=== PATIENT | male | born 1970 | race Caucasian/White ===

== ENCOUNTER 2018-10-17 13:49 | Inpatient (IN) ==
[~2018-10-17 13:49] MED LIST: LIDOCAINE W/ SODIUM BICARB 0.5 ML SYR ONE; LIDOCAINE W/ SODIUM BICARB 0.5 ML SYR SUBD ONE; Lactated Ringers 1,000 ML PRIMARY IV ONE; Nasal Sanitizer POPSWAB ampule 3 AMP (Nozin) PREOP DOSE ENOS SCH; Sodium Chloride 0.9% 0 ML ONE; Vancomycin Inj 1gm vial ONE; ceFAZolin Inj 2gm (Premix) 2 GM/50 ML BAG IV ONE
[2018-10-17 16:34] LABS: Hematocrit [HCT] 50.1 % (42.0-52.0); Hemoglobin [HGB] 17.4 g/dL (14.0-18.0); MEAN CORPUSCULAR HEMOGLOBIN 30.9 PG (27-31); MEAN CORPUSCULAR HGB CONC 34.7 g/dL (33-37); MEAN CORPUSCULAR VOLUME 88.8 FL (80-90); MEAN PLATELET VOLUME 9.3 FL (7.4-12.2); RED BLOOD COUNT 5.64 10^6/uL (4.70-6.10)
[2018-10-17 16:35] LABS: BILIRUBIN,URINE NEGATIVE (NEG); CLARITY,URINE CLEAR (CLEAR); COLOR,URINE YELLOW (Y); GLUCOSE, URINE (UA) NEGATIVE (NEG); PH,URINE 5.5 (5.0-8.5); PROTEIN,URINE NEGATIVE (NEG); UROBILINOGEN,URINE 0.2 EU/dL (0.2)
[2018-10-17 16:36] LABS: OCCULT BLOOD,URINE Trace (NEG)
[2018-10-17 17:01] LABS: BLOOD UREA NITROGEN 19 mg/dL (7-22); BUN/CREATININE RATIO 23.75 (6-20)
[2018-10-17] MEDS ORDERED: IPRATROPIUM/ALBUTEROL SULFATE 3 ML NEB NEB ONE (18:52)
[2018-10-17 19:44] LABS: URINE SAMPLE TYPE VOIDED SPECIMEN
[2018-10-17] MEDS ORDERED: Vancomycin Inj 1gm vial ONE (20:14)
[2018-10-17] MEDS ORDERED: BACITRACIN 50,000 UNIT VIAL IRRIG ONE (20:14)
[2018-10-17] MEDS ORDERED: Sodium Chloride 0.9% vial 20 ML ONE (20:14)
[2018-10-17] MEDS ORDERED: THROMBIN (BOVINE) 20,000 UNIT KIT TOPICAL ONE (20:15)
[2018-10-17] MEDS ORDERED: fentaNYL Inj 250 MCG/5 ML VIAL ONE (20:18)
[2018-10-17] MEDS ORDERED: Propofol 2,000 MG/200 ML VIAL IV ONE (20:19)
[2018-10-17] MEDS ORDERED: ONDANSETRON 4 MG/2 ML VIAL ONE (20:21)
[2018-10-17] MEDS ORDERED: KETOROLAC 30 MG/1 ML VIAL ONE (20:21)
[2018-10-17] MEDS ORDERED: ROCURONIUM 10 MG/1 ML - 5 ML VIAL IVP ONE (20:24)
[2018-10-17] MEDS ORDERED: Propofol 1,000 MG/100 ML VIAL IV ONE (22:07)
[2018-10-17] MEDS ORDERED: METOPROLOL TARTRATE 5 MG/5 ML VIAL ONE (22:14)
[2018-10-17] MEDS ORDERED: Lactated Ringers 1,000 ML PRIMARY IV ONE ×2 (22:51→23:12)
[2018-10-17] MEDS ORDERED: SUGAMMADEX SODIUM 200 MG/2 ML VIAL IV ONE (23:10)
[2018-10-17] MEDS ORDERED: fentaNYL Inj 100 MCG/2 ML VIAL ONE (23:14)
--- NOTE | 2018-10-17 23:30 | OPNOTE.NEU ---
Operative Note Operative Note: Neurosurgical Services Operative Note [facility] [id number] Tia Bar Date of Surgery: 10/17/18 Preoperative Diagnosis: L2 inferior facer fracture L2-3 herniated disc with radiculopathy Post-Op Diagnosis Codes: L2 inferior facer fracture L2-3 herniated disc with radiculopathy Procedure(s): L2-3 Posterior lumbar decompression and fusion Surgeon(s): Kyle Hartmann MD Public Service Representative(s): ANGELICA Powell Anesthesia: General Anesthesia Anesthesiologist / TRANSCRIBING OPERATOR HEAD: Francisco Javier Hernandez Brief Findings: MArked instability; recurrent herniated disc. Procedure(s): We discussed the procedure, risks, advantages and disadvantages of surgical intervention at length. To prevent further pain, disability and potential progression of neurologic deficits, the patient would like to proceed with surgery. Introduction: After obtaining informed consent, careful consideration of the pre-operative studies and evaluation, the patient asked to proceed with surgery. The patient was taken to the operating room, given an anesthetic, positioned and prepared for surgery. All pressure points were meticulously padded and great care was taken to insure the patient was appropriately positioned to avoid any abnormal strain on the extremities or any other area. The operative region was prepared with iodine solution and isolated aseptically using routine sterile draping. Position / Approach: The patient was placed in the prone position such that a posterior approach could be taken to the lumbar levels. Exposure: His previous midline incision was opened sharply so as to incorporate the abnormal level of the patient's spine using the fluoroscope for visualization and planning. Dissection was carried with electrocautery through the subcutaneous tissues then subperiosteally along the spinous processes then lamina laterally to the lateral facet joint. The transverse processes were exposed. A self retaining retractor was inserted exposing the spine. DECOMPRESSION: As the spine was exposed, it was clear that the involved joint was markedly incompetent. The joints on either side were removed medial to lateral confirming there was foraminal stenosis from herniated disk as well as calcification which extended out into the foramen bilaterally. To adequately decompress the level, both facets were completely removed. The facet on the right was fractured. The decompression was much more extensive then would be required for placement of a posterior arthrodesis alone. Both the traversing as well as the exiting nerve roots were decompressed on each side. There was herniated disk beneath the thecal sac and removal with down biting curettes with minimal manipulation of the thecal sac. Annulotomies were placed bilaterally and disk distractor's were placed in the disk space. On the right, considerable epidural fibrosis was dissected using microsurgergical technique. While distracting, a radical discectomy was performed bilaterally. The epidural space was explored extensively also to confirm no further pressure was present on any of the exiting or traversing neural elements. ARTHRODESIS: The endplates above and below the abnormal disk were scraped of cartilaginous tissue and allograft insert and rotate machined bone graft spacers were placed bilaterally. The space between the bone graft was preloaded with the bone graft mixture described below, and this mixture was also placed lateral to the bone spacers within the disk space. The bone spacers were countersunk appropriately using the fluoroscope for visualization. HARVEST / PREPARATION of BONE GRAFT: The "bone graft" was prepared from the patient's own bone derived from the left hip collected by curetting bone from the hip through a separate slab incision(37). This morselized bone was admixed with bone marrow aspirate also obtained from the hip (95349). Autologous local bone which was removed during the decompression through the same incision used for the fusion was stripped of surrounding soft tissues, morselized (88174) and mixed with osteopromotive calcium compound as well as allograft demineralized bone matrix (66332), and this was combined with the previously described hip graft and concentrated bone marrow aspirate to form the "bone graft." INSTRUMENTATION: The pedicles of above and below the abnormal disk were then identified under direct vision as well as using the fluoroscope for visualization. The pedicles were probed and tapped and pedicle screws were advanced, which were further tested using motor monitoring and were identified to have appropriate impedances and no evidence of any contact with the surrounding neural elements. Having placed pedicle screws, they were interconnected with rods, and a cross-link was placed. The screws were tested with motor monitoring and were found to have appropriate thresholds for stimulation as they were placed and after. INNER TRANSVERSE FUSION: Attention was directed to the lateral aspect of the spine. The transverse processes above and below the level were eburnated using a high speed drill equipped with a anuradha bur. Between this region of bone, the patient's own bone, described previously as "bone graft mixture", consisting of allograft, demineralized bone matrix, calcium compound, bone marrow aspirate, as well as morselized graft from the hip were placed between the transverse processes. NEED FOR OFFICE BOOKKEEPER: Ava Rivas PA-C, was instrumental throughout the operation to assist with exposure of the neural structures and protect them as the bony elements were removed. She was also instrumental during placement of the implant(s) which often takes more than two hands to perform safely and ef ficiently. OTHER TOOLS USED / UTILITY: All manipulation of the neural elements was performed using the microscope for visualization. As well, the fluoroscope was used to confirm the levels as indicated as well as to assist during implant placement and later to assess the patient's spinal alignment. There were no intra operative complications. CLOSURE: Thereafter, the wound was irrigated with copious amounts of antibiotic impregnated saline solution. Immaculate hemostasis was achieved using thrombin soaked Gelfoam, bone wax along the bony margins, as well as electrocautery. The wound was then closed in anatomical layers using Vicryl suture in the subcutaneous tissues followed by Steri-Strips on the skin. Estimated blood loss was less than 200 cc and none was replaced. Following the procedure the patient will be returned to the supine position, extubated then transferred to the recovery room, anticipating them to be in stable condition as compared to pre- surgically. Estimated Blood Loss: 200 cc Operative hemorrhage? Yes, expected amount. Drains: Hemovac Condition: Good Complications: None Authenticated by Dr. Hartmann On Production
[2018-10-17] MEDS ORDERED: Meperidine Inj 50 MG/ML CARPUJECT IVP PRN (23:32)
[2018-10-17] MEDS ORDERED: fentaNYL Inj 100 MCG/2 ML VIAL IVP PRN (23:32)
[2018-10-17] MEDS ORDERED: LIDOCAINE W/ SODIUM BICARB 0.5 ML SYR SUBD PRN (23:32)
[2018-10-17] MEDS ORDERED: MORPHINE SULFATE 2 MG/1 ML IVP PRN (23:32)
[2018-10-17] MEDS ORDERED: PROMETHAZINE 25 MG/1 ML VIAL IM PRN (23:32)
[2018-10-17] MEDS ORDERED: Metoclopramide Inj 10 MG/2 ML VIAL IVP PRN (23:32)
[2018-10-17] MEDS ORDERED: Prochlorperazine Edisylate Inj 10mg/2ml vial IVP PRN (23:32)
--- NOTE | 2018-10-17 23:35 | CRNA.PROGR ---
Anesthesia Recovery Phase I - Post Anesthesia Evaluation Patient's Condition on Arrival in Phase I: Stable (sleeping) Pain Level: 0
--- NOTE | 2018-10-17 23:35 | CRNA.PROGR ---
Anesthesia Time - Procedure/Recovery Time Start Date: 10/17/18 End Date: 10/17/18 Anesthesia : Time In: 20:32 Anesthesia : Time Out: 23:27 Anesthesia : Total Time: 175 - Total Anesthesia Time Total Anesthesia Time (minutes): 175 - Other Weight: 79.379 kg Height: 5 ft 10 in Body Mass Index (BMI): 25.1 Physical Status: P2 Anesthesia Type: General Anesthesia : ET
[2018-10-17] MEDS ORDERED: Lactated Ringers 1,000 ML PRIMARY IV SCH (23:45)
[2018-10-18] MEDS: HYDROmorphone 2 MG/1 ML IVP PRN ×3 (00:01→00:19)
[2018-10-18] MEDS ORDERED: HYDROmorphone 2 MG/1 ML ONE (00:03)
[2018-10-18] MEDS ORDERED: Ondansetron ODT Tab 4 MG TAB PO PRN (00:54)
[2018-10-18] MEDS ORDERED: MORPHINE SULFATE 2 MG/1 ML IVP PRN (00:54)
[2018-10-18] MEDS ORDERED: LABETALOL 20 MG/4 ML (5 MG/1 ML) SYRINGE IVP PRN (00:54)
[2018-10-18] MEDS ORDERED: ONDANSETRON 4 MG/2 ML VIAL IVP PRN (00:54)
[2018-10-18] MEDS ORDERED: DOCUSATE 100 MG CAPSULE PO PRN (00:54)
[2018-10-18] MEDS ORDERED: HYDRALAZINE 20 MG/1 ML IVP PRN (00:54)
[2018-10-18] MEDS ORDERED: Zolpidem Tab 5 MG TAB PO PRN (00:54)
[2018-10-18] MEDS: D5-1/2NS + 20mEq KCL 1,000 ML PRIMARY IV SCH ×2 (01:39→12:01)
[2018-10-18] MEDS: CYCLOBENZAPRINE 10 MG TABLET PO PRN ×2 (01:57→09:59)
[2018-10-18] MEDS: ceFAZolin Inj 1 GM in Sodium Chloride 0.9% 100 ML IV SCH ×2 (03:39→12:11)
[2018-10-18] MEDS: KETOROLAC 15 MG/1 ML VIAL IVP SCH ×2 (04:32→10:34)
[2018-10-18 05:19] LABS: BASOPHILS # (AUTO) 0.02 10*3/UL; BASOPHILS % (AUTO) 0.2 % (0-1); EOSINOPHILS # (AUTO) 0.01 10*3/UL; EOSINOPHILS % (AUTO) 0.1 % (0-8); Hematocrit [HCT] 46.4 % (42.0-52.0); Hemoglobin [HGB] 15.6 g/dL (14.0-18.0); LYMPHOCYTES # (AUTO) 0.87 10*3/uL; MEAN CORPUSCULAR HEMOGLOBIN 30.1 PG (27-31); MEAN CORPUSCULAR HGB CONC 33.6 g/dL (33-37); MEAN CORPUSCULAR VOLUME 89.6 FL (80-90); MEAN PLATELET VOLUME 9.7 FL (7.4-12.2); MONOCYTES # (AUTO) 0.17 10*3/UL (0.3-0.8); MONOCYTES % (AUTO) 1.3 % (5-15); NEUTROPHILS # (AUTO) 11.98 10*3/UL; NEUTROPHILS % (AUTO) 91.5 % (50-80); RED BLOOD COUNT 5.18 10^6/uL (4.70-6.10)
[2018-10-18 05:42] LABS: BLOOD UREA NITROGEN 17 mg/dL (7-22); BUN/CREATININE RATIO 21.25 (6-20)
[2018-10-18 06:29] LABS: PLATELET MORPHOLOGY COMMENT NORMAL MORPHOLOGY (NORM); RBC MORPHOLOGY COMMENT NORMAL MORPHOLOGY (NORM); WBC MORPHOLOGY COMMENT NORMAL MORPHOLOGY (NORM)
--- NOTE | 2018-10-18 07:37 | DI ---
XR L-SPINE 2-3 VW 10/17/2018 11:22 PM History: [facility] [place] ^Post op baseline Comparison: Lumbar spine CT 10/04/2018. Findings: Portable AP and lateral views of the lumbar spine are submitted. The patient is status post transpedicular L2/3 fusion with interbody spacer placement. There maybe L2 laminectomy. There is no evidence of hardware fracture or loosening. There are five non-rib bearing lumbar type vertebral bodi es. There is no evidence of acute fracture or spondylolisthesis. Vertebral body heights are preserved . Degenerative changes noted previously have not significantly progressed. Drain tubing is noted over lying the surgical bed. The visualized soft tissues are otherwise unremarkable. Impression: 1. Status post transpedicular L2/3 fusion without evidence of hardware complication or acute osseous abnormality. Correlate with desired surgical outcome.
[2018-10-18] MEDS: HYDROcodone-APAP 7.5 MG-325 MG TABLET PO PRN ×4 (08:15→15:30)
--- NOTE | 2018-10-18 11:58 | PTI REPORT ---
Thank you for the referral of Tia Bar. He was seen on 10/18/18 for an inpatient evaluation status post lumbar fusion. SUBJECTIVE: The patient is a 48-year-old male who underwent a lumbar fusion yesterday. The patient states that he is doing fairly well this morning. He does complain primarily of surgical pain right along the top of his incision site and reports his pain is a 3/10 on the verbal analog scale (0=no pain, 10=worst pain). The patient reports that he lives in a trailer home here in [place]. He states that he does have three stairs into the home and does have a railing on the left side. The patient states that prior to his surgery he was not using any assistive device for ambulation and denies any falls in the last three months. The patient does state that prior to surgery he was having issues with right lower extremity weakness, numbness, and tingling. He states that he did undergo a discectomy in February of 2018 but his symptoms were not resolved at that time. The patient is very motivated and states that he would like to try to go home today if possible, but also does not want to overdo it in regards to his new surgery. PAST MEDICAL HISTORY: Past medical history can be found in the patient's medical record. OBJECTIVE FINDINGS: General observations: The patient was alert and oriented to setting upon PT arrival. The patient was sitting up in bed. The patient does have a drain in place. The patient was first instructed on status post lumbar fusion precautions to include no bending/lifting/twisting. The patient was educated that he is to wear his back brace whenever he is up and moving. The patient was educated on how to properly perform a log roll into and out of bed and this was demonstrated with pictures. The patient was also instructed on how to perform gentle nerve glides and also to get up and walk frequently throughout the day. Bed mobility: The patient performed a log roll from a supine in bed position to a seated edge of bed position with minimal verbal cueing. Pain: The patient reported a pain level of 3/10 on the verbal analog scale (0=no pain, 10=worst pain). Transfers: The patient was able to perform a sit to stand transfer from the bed with stand by assist x1. At that time the patient was able to independently don his back brace correctly. Following ambulation the patient transferred back into bed with a log roll. Ambulation: A gait belt was placed around the patient and the patient ambulated 150 feet safely with contact guard assist x1 for safety. He did complain of some right groin pain, which is some of the pain he had before his surgery. At that time the patient stated he would like to try stairs this morning as he was feeling good. We ambulated an additional 50 feet over to the stairwell. The patient was able to safely perform 5 steps safely with contact guard assist x1 with a handrail on the left. The patient then ambulated back to his room. ASSESSMENT: The patient has good rehab potential. Problem List: Patient is status post lumbar fusion Generalized weakness, primarily in the right lower extremity Physical Therapy Goals: To be met by discharge from inpatient: Patient will be able to verbalize lumbar fusion precautions. Patient will be able to don and doff his brace correctly and independently. Patient will be able to demonstrate a correct log roll into and out of bed and will be able to transfer independently from bed to stand. Patient will be able to ambulate at least 150 feet safely and independently with back brace in place. Patient will be able to ascend and descend at least 5 stairs safely and independently with handrail on the left in order to return back home. TREATMENT PLAN: Patient will be seen B.I.D during the week and one time per day over the weekend as an inpatient to address the above goals and objectives. INITIAL TREATMENT: Treatment today consisted of the initial evaluation followed by one unit of functional activity. Following treatment the patient was left in bed with call light in place. BLANCA
[2018-10-18 13:23] VITALS: BP 149/84; RESP 16; TEMP 97.6
--- NOTE | 2018-10-18 14:57 | NEURO.PROG ---
Subjective Post Op Day: 1 Pain Management: PO Pineda Catheter: No Flatus: Yes Diet: Regular Ambulating: Yes Date of Service: 10/18/18 Time of Service: 14:52 Objective : Data - Labs CBC and BMP: 10/18/18 04:30 10/18/18 04:30 - Vital Signs Vital Signs and I&O: Vital Signs - Last Taken Temperature 97.6 F 10/18/18 13:00 Pulse Rate 75 10/18/18 13:00 Respiratory Rate 16 10/18/18 13:00 Blood Pressure 149/84 10/18/18 13:00 Pulse Ox 93 10/18/18 13:00 Intake and Output (24hr x 4 totals) 10/16/18 10/17/18 10/18/18 10/19/18 05:59 05:59 05:59 05:59 Intake Total 2760 / 2760 1345 / 1345 Output Total 605 / 605 845 / 845 Balance 2155 / 2155 500 / 500 Objective : Exam - General General Appearance: No Acute Distress Additional General Exam Details: He is ambulating with no difficulty and wearing his LSO back brace. - Head Head Exam: Normal Inspection - Eye Eye Exam: Normal Appearance - ENT ENT Exam: Normal Exam - Neck Neck Exam: Normal Inspection, Full ROM - Respiratory Respiratory Exam: Breathing Non Labored - Cardiovascular Cardiovascular Exam: RRR - GI/Abdominal GI/Abdominal Exam: Normal Bowel Sounds, Non Tender, Non Distended - Rectal Rectal Exam: Deferred - External Exam: Deferred Exam: Deferred - Extremities Extremities Exam: Normal Inspection, Full ROM - Back Back Exam: Normal Inspection - Neurological Neurological Exam: Alert, Oriented x 3 - Psychiatric Psychiatric Exam: Normal Affect - Integumentary Integumentary Exam: Warm, Dry Additional Integumentary Exam Details: Intact midline lumbar surgical wound with surgical drain. Surgical drain out satisfactory and drain removed. - Central Line Examination Central Line Present on Admission: No Assessment and Plan - Assessment / Plan Additional Assessment/Plan Details: Post op day one posterior lumbar discectomy and fusion, one level, L2-3. He is doing well, ambulating with no difficulty and wearing his LSO back brace. He is happy with his surgical results and reports drastic pre operative pain reduction Surgical drain out is satisfactory, removed. Will discharge home today.
[2018-10-18 15:13] VITALS: O2SAT 98
--- NOTE | 2018-10-19 10:35 | CONSULT ---
Consult Note - Consult Consult Date: 10/19/18 Requesting Physician: Jose Luis Duval Primary Care Provider: Harpal Marques MD - History of Present Illness History of Present Illness: Eliza returned today with increasing back pain, incisional pain. He had some twitching in his legs and scant drainage from his incision. He was seen in the ER where a CT was obtained which shows no ominous findings. I saw and examined him in the ER. Review of Systems - Review of Systems All Systems: Reviewed & No Additional Complaints Except as Stated - Constitutional Constitutional: REPORTS: Negative System Review - Integumentary Integumentary: REPORTS: Negative System Review - Ear/Nose Exam Ear/Nose Exam: REPORTS: Negative System Review - Mouth/Throat Mouth/Throat Exam: REPORTS: Negative System Review - Respiratory Respiratory: REPORTS: Negative System Review - Cardiovascular Cardiovascular: REPORTS: Negative System Review - Gastrointestinal Gastrointestinal / Abdominal: REPORTS: Negative System Review - Genitourinary Genitourinary: REPORTS: Negative System Review - Musculoskeletal Musculoskeletal: REPORTS: Back Pain - Hematlogic / Lymphatic Hematologic / Lymphatic: REPORTS: Negative System Review - Neurological Neurologic: REPORTS: Tremors Past Medical History Tobacco Use: Current Every Day Smoker In the Past 12 Months, Have Used or Abuse Any of the Following Substance: None Medication / Allergies Home Medications: Home Medications Medication Instructions Recorded Confirmed cyclobenzaprine 10 mg tablet 10 mg PO Q8H PRN #60 tab 10/17/18 10/19/18 hydrocodone 7.5 mg-acetaminophen 1 tab PO Q4H PRN #40 tab 10/17/18 10/19/18 325 mg tablet sulfamethoxazole 800 1 tab PO BID 5 Days #10 tab 10/17/18 10/19/18 mg-trimethoprim 160 mg tablet Allergies/Adverse Reactions: Allergies Allergy/AdvReac Type Severity Reaction Status Date / Time oxycodone [From Percocet] AdvReac Dysphoria Verified 10/18/18 10:02 Exam - Vitals Vital Signs: Vital Signs Temperature 97.6 F Temperature Source Temporal Artery Scan Pulse Rate [Pulse Oximeter] 75 Pulse Rate [Right Index finger 86 ] Pulse Rate 61 Respiratory Rate 16 Blood Pressure [Right Arm] 149/84 Blood Pressure 133/86 Pulse Ox [Right Index finger] 98 Pulse Ox 93 Oxygen Flow Rate [Right Index 2 finger] Oxygen Flow Rate 2 Oxygen Delivery Method [Right Room Air Index finger] Oxygen Delivery Method Room Air Height 5 ft 10 in Weight 181 lb 12.8 oz - General General Appearance: No Acute Distress - Head Head Exam: Normal Inspection, Atraumatic - Eye Eye Exam: POSITIVE: Normal Appearance - ENT ENT Exam: POSITIVE: Normal Exam - Neck Neck Exam: Normal Inspection, Full ROM - Respiratory Respiratory Exam: POSITIVE: Clear to Auscultation - Bilaterally - Cardiovascular Cardiovascular Exam: POSITIVE: RRR - GI/Abdominal GI/Abdominal Exam: POSITIVE: Non Tender, Non Distended - Rectal Rectal Exam: POSITIVE: Deferred - External Exam: POSITIVE: Deferred - Extremities Extremities Exam: POSITIVE: Full ROM, No Edema Present - Back Back Exam: POSITIVE: Normal Inspection Additional Back Exam Details: Wound clean and dry - Neurological Neurological Exam: POSITIVE: Alert, Oriented x 3, Reflexes Normal, CN II-XII Intact, Moves All Extremities Equally Additional Neurological Exam Details: Full strength and sensation Results - Labs CBC and BMP: 10/18/18 04:30 10/18/18 04:30 Assessment and Plan - Patient Problems (1) Dressing change Status: Acute Code(s): Z48.00 - Encounter for change or removal of nonsurgical wound dressing (2) Postoperative pain Status: Acute Code(s): G89.18 - Other acute postprocedural pain - Assessment / Plan Additional Assessment/Plan Details: Admit to swing bed for pain control. Suspect he was discharged pre-maturely. Recommend 24 hours of scheduled toradol, narcotics sparingly and PT/OT evalutation and treatment. Thank you.
--- NOTE | 2018-10-19 14:43 | OTI REPORT ---
Thank you for the referral of Tia Bar. He was seen on 10/18/18 for an occupational therapy inpatient evaluation status post lumbar fusion. SUBJECTIVE: The patient is a 48-year-old male who is being seen secondary to having a low back fusion. PAST MEDICAL HISTORY: Past medical history can be found in the patient's medical record. OBJECTIVE FINDINGS: General observations: The patient was instructed in his precautions of no bending/lifting/twisting. Activities of daily living: The patient was issued a tool setter and sock aide and instructed in its use. The patient practiced using the tool setter and sock aide and did well with both of these. He has a high rise toilet seat and did not feel the need for a shower chair. The patient was able to use adaptive devices independently after demonstration. ASSESSMENT: The patient did well and has good rehab potential. Short-Term Goals: To be met by discharge from inpatient: Patient will be able to use adaptive equipment independently. Patient will be able to complete all functional transfers following back precautions. Long-Term Goals: To be met following discharge from inpatient: Patient will be discharged to home, demonstrating safety and independence with all ADLs and functional activities. TREATMENT PLAN: Patient will be discharged from OT secondary to meeting all goals. INITIAL TREATMENT: Treatment today consisted of the initial evaluation only. BLANCA
== END 2018-10-18 15:33 | disposition home or self-care (01) | DRG 460 ==
LOC: OPS 13:49 → MED/SURG 23:32
PROVIDERS: ADMIT Neurological Surgery; ATTEND Neurological Surgery

== ENCOUNTER 2018-10-19 07:10 | Inpatient (IN) ==
[2018-10-19] MEDS ORDERED: Sodium Chloride 0.9% 1,000 ML PRIMARY IV ONE (07:18)
[2018-10-19] MEDS ORDERED: LORazepam 2 MG/1 ML VIAL IVP ONE (07:20)
[2018-10-19 07:24] LABS: BASOPHILS # (AUTO) 0.04 10*3/UL; BASOPHILS % (AUTO) 0.2 % (0-1); EOSINOPHILS # (AUTO) 0.16 10*3/UL; Hematocrit [HCT] 47.2 % (42.0-52.0); Hemoglobin [HGB] 16.2 g/dL (14.0-18.0); LYMPHOCYTES # (AUTO) 1.94 10*3/uL; MEAN CORPUSCULAR HGB CONC 34.3 g/dL (33-37); MEAN CORPUSCULAR VOLUME 90.4 FL (80-90); MEAN PLATELET VOLUME 9.5 FL (7.4-12.2); MONOCYTES # (AUTO) 1.59 10*3/UL (0.3-0.8); MONOCYTES % (AUTO) 9.6 % (5-15); NEUTROPHILS # (AUTO) 12.76 10*3/UL; NEUTROPHILS % (AUTO) 77.1 % (50-80); RED BLOOD COUNT 5.22 10^6/uL (4.70-6.10)
[2018-10-19 07:30] LABS: BLOOD UREA NITROGEN 18 mg/dL (7-22); PLATELET MORPHOLOGY COMMENT NORMAL MORPHOLOGY (NORM); RBC MORPHOLOGY COMMENT NORMAL MORPHOLOGY (NORM); SERUM ALBUMIN 4.8 g/dL (3.5-4.8); WBC MORPHOLOGY COMMENT NORMAL MORPHOLOGY (NORM)
--- NOTE | 2018-10-19 08:50 | DI ---
CT Lumbar Spine WO Contrast 10/19/2018 7:19 AM History: [facility] [place] ^increased low back pain, weakness/numbness in the Comparison: L-spine x-ray 10/17/2018. L-spine CT 10/04/2018. Technique: Noncontrast CT images of the lumbar spine were obtained in the axial, coronal, and sagitta l planes. Findings: The patient is status post L2/3 transpedicular fusion with interbody spacer and laminectomy at the L2 level. The right portion of the spacer is fractured, though remains within the interverteb ral disc space. The screws remain within the confines of the cortex of the pedicles and vertebral bod ies. There is no evidence of metallic hardware fracture. There is grade 1 anterolisthesis of L5 on S1 with bilateral L5 pars defects, not significantly changed compared to prior imaging. There are 5 non -rib bearing lumbar type vertebral bodies. The vertebral body heights are maintained. L1-2: Intervertebral disc height is maintained. There is no significant osseous central canal stenosi s or neuroforaminal narrowing. Posterior elements appear unremarkable. (Normal level.) L2-3: Intervertebral disc spacer restores some height loss. There is no significant osseous central c anal stenosis or neuroforaminal narrowing L3-4: Mild intervertebral disc height loss. There is no significant osseous central canal stenosis or neuroforaminal narrowing. L4-5: Mild intervertebral disc height loss. There is no significant osseous central canal stenosis or neuroforaminal narrowing. L5-S1: Mild intervertebral disc height loss. There is no significant osseous central canal stenosis or neuroforaminal narrowing. There is hypoattenuating debris with small locules of gas in the surgical bed, an expected finding in the immediate postoperative timeframe. Further evaluation is limited in the absence of intravenous c ontrast. The paravertebral soft tissues are otherwise unremarkable. The lung bases are clear. The zoey ged solid organs and hollow viscera demonstrate normal CT morphology. Scattered atheromatous calcific ations are noted in the vasculature. Impression: Status post transpedicular L2/3 fusion with interbody spacer and L2 laminectomy. The righ t portion of the spacer is fractured, though remains within the intervertebral disc space. Correlate with desired surgical outcome.
[2018-10-19 08:59] LABS: BILIRUBIN,URINE NEGATIVE (NEG); CLARITY,URINE CLEAR (CLEAR); COLOR,URINE YELLOW (Y); GLUCOSE, URINE (UA) NEGATIVE (NEG); OCCULT BLOOD,URINE NEGATIVE (NEG); PROTEIN,URINE NEGATIVE (NEG); UROBILINOGEN,URINE 0.2 EU/dL (0.2)
[2018-10-19 09:00] LABS: URINE SAMPLE TYPE CLEAN CATCH URINE
[2018-10-19] MEDS ORDERED: HYDROmorphone 2 MG/1 ML IVP ONE ×2 (09:11→09:33)
--- NOTE | 2018-10-19 09:27 | PDOC ---
Back Pain / Injury HPI - General Chief Complaint: Neck / Back Complaint Stated Complaint: low back pain into legs after back surgery this wk Date Seen by Provider: 10/19/18 Time Seen by Provider: 07:15 Source: Patient, EMS Exam Limitations: POSITIVE: No limitations Nurse's Notes Reviewed & Considered: Yes EMS Report Reviewed & Considered: Verbal - History of Present Illness Initial Comments: The patient is a 48-year-old male who is brought to the emergency department by ambulance with severe lower back pain radiating into his legs with bilateral leg numbness and shaking. The patient underwent lumbar fusion surgery per Dr. Hartmann 2 days ago. He was discharged from the hospital yesterday. He was seen here in the emergency department last night with some drainage noted in the dressing. The dressing was changed at that time and he was noted to have some serosanguineous drainage without any evidence of wound swelling or induration. The patient states that he woke up this morning at approximately 4 AM with severe lower back pain radiating down both legs, right leg worse than the left. He also states he feels like he has some weakness in his legs and numbness in both feet. He did try taking hydrocodone at 4 AM with no relief. The only medications that he is currently taking are hydrocodone and Flexeril. - Patient Home Medications Home Medications: Home Medications cyclobenzaprine 10 mg tablet 10 mg PO Q8H PRN #60 tab 10/17/18 hydrocodone 7.5 mg-acetaminophen 325 mg tablet 1 tab PO Q4H PRN #40 tab 10/17/18 sulfamethoxazole 800 mg-trimethoprim 160 mg tablet 1 tab PO BID 5 Days #10 tab 10/17/18 - Patient Allergies Allergies/Adverse Reactions: Allergies Allergy/AdvReac Type Severity Reaction Status Date / Time oxycodone [From Percocet] AdvReac Dysphoria Verified 10/19/18 08:05 Past Medical History - heen HEENT History: Denies History Cardiovascular History: Hypertension Respiratory History: Denies History Gastrointestinal History: Denies History Genitourinary History: Denies History Endocrine History: Denies History Musculoskeletal History: Back Pain, Back Injury Prosthesis or Implant: No Neurological History: Denies History Blood Disorders: Denies History Psychiatric History: Denies History History of Sexually Transmitted Diseases: No Cancer History: Denies History In Past Year Been Physically Harmed or Verbally Threatened: No History of MDRO: No History of Other Communicable Diseases: No Tobacco Use: Current Every Day Smoker Alcohol Use: None In the Past 12 Months, Have Used or Abuse Any Substance: None Previous Surgical History: Yes Type / Date of Surgery: BELÉN/APPENDECTOMY. BACK LAMINECTOMY. BACK L2-L3 FUSION Anesthesia Reactions: No Malignant Hyperthermia: No Significant Family History: Heart disease, Diabetes, Hypertension Past Medical History Reviewed: Reviewed - No Changes ROS - Limitations ROS Limitations: No Limitations Constitution: REPORTS: Chills, Weakness Neurological: REPORTS: Tingling (Both feet and left hand), Numbness (Both feet) Gastrointestinal: REPORTS: Denies GI Symptoms Musculoskeletal: REPORTS: Back Pain. DENIES: Lower Extremity Swelling Genitourinary: REPORTS: Denies Symptoms Eyes: REPORTS: Denies Symptoms ENT: REPORTS: Denies Symptoms Skin: DENIES: Rash Back Physical Assessment - General Appearance General Appearance: REPORTS: Alert, Cooperative, No Acute Distress, Anxious, Other (Patient hyperventilating on arrival) - HEENT HEENT: POSITIVE: Head Inspection Nml, Eyes Inspection Nml, Ears Inspection Nml, Nose Inspection Nml, Pharynx Inspect. Nml, PERRL, EOMI, Dry Mucous Membranes - Neck Neck: POSITIVE: Non Tender, Painless ROM, Trachea Midline - Respiratory / CVS Respiratory / CVS: POSITIVE: Chest Non Tender, Breath Sounds Normal, No Respiratory Distress, Heart Sounds Normal, Regular Rate/Rhythm - Abdomen Abdomen: Soft: (All Quadrants), Denies Tenderness: (All Quadrants), No Distention: (All Quadrants) - Skin Skin: REPORTS: Intact, No Rash - Extremities Extremity Assessment: Normal Inspection: (ALL) - Neurological / Psychological Neuro / Psych: POSITIVE: Oriented X3, window trimmer Normal As Tested, Motor Normal, Sensation Normal Back Progress - Results Reviewed by me Xrays/CTs/US Reviewed: Yes Discussed with Radiologist: Yes Radiology Findings: CT scan of the lumbar spine shows no obvious fluid collection did there is some fracturing of the disc spacer between the L2-L3 vertebrae with no other acute findings per radiologist. Lab Results Reviewed by Me: Yes CBC and BMP: 10/19/18 07:00 10/19/18 07:00 Lab Results:: Laboratory Results 10/19/18 10/19/18 10/19/18 07:00 07:00 07:00 WBC 16.56 H RBC 5.22 Hgb 16.2 Hct 47.2 MCV 90.4 H MCH 31.0 MCHC 34.3 RDW Std Deviation 46.1 RDW Coeff of Lauri 14.1 Plt Count 301 MPV 9.5 Immature Gran % (Auto) 0.4 Neut % (Auto) 77.1 Lymph % (Auto) 11.7 [place] % (Auto) 9.6 Eos % (Auto) 1.0 Baso % (Auto) 0.2 Immature Gran # (Auto) 0.07 Neut # (Auto) 12.76 Lymph # (Auto) 1.94 [place] # (Auto) 1.59 H Eos # (Auto) 0.16 Baso # (Auto) 0.04 WBC Morphology Comment Normal morphology Plt Morphology Comment Normal morphology RBC Morph Comment Normal morphology Sodium 142 Potassium 3.7 L Chloride 102 Carbon Dioxide 24 Anion Gap 16 BUN 18 Creatinine 0.9 Estimated GFR > 60 BUN/Creatinine Ratio 20.00 Glucose 95 Calculated Osmolality 295.0 H Lactic Acid Calcium 9.4 Magnesium 2.0 Total Bilirubin 0.7 AST 55 ALT 20 L Alkaline Phosphatase 77 C-Reactive Protein 4.4 H Total Protein 7.9 Albumin 4.8 Globulin 3.1 Albumin/Globulin Ratio 1.50 Ur Collection Type Urine Color Urine Clarity Urine pH Ur Specific [place] Urine Protein Urine Glucose (UA) Urine Ketones Urine Occult Blood Urine Nitrate Urine Bilirubin Urine Urobilinogen Ur Leukocyte Esterase Ur Culture Indicated? 10/19/18 10/19/18 07:00 08:54 WBC RBC Hgb Hct MCV MCH MCHC RDW Std Deviation RDW Coeff of Lauri Plt Count MPV Immature Gran % (Auto) Neut % (Auto) Lymph % (Auto) [place] % (Auto) Eos % (Auto) Baso % (Auto) Immature Gran # (Auto) Neut # (Auto) Lymph # (Auto) [place] # (Auto) Eos # (Auto) Baso # (Auto) WBC Morphology Comment Plt Morphology Comment RBC Morph Comment Sodium Potassium Chloride Carbon Dioxide Anion Gap BUN Creatinine Estimated GFR BUN/Creatinine Ratio Glucose Calculated Osmolality Lactic Acid 2.1 Calcium Magnesium Total Bilirubin AST ALT Alkaline Phosphatase C-Reactive Protein Total Protein Albumin Globulin Albumin/Globulin Ratio Ur Collection Type Clean catch urine Urine Color Yellow Urine Clarity Clear Urine pH 7.0 Ur Specific [place] 1.015 Urine Protein Negative Urine Glucose (UA) Negative Urine Ketones Negative Urine Occult Blood Negative Urine Nitrate Negative Urine Bilirubin Negative Urine Urobilinogen 0.2 Ur Leukocyte Esterase Negative Ur Culture Indicated? Culture not set - Patient's Progress MDM / ED Course: The patient arrived in the ER via EMS. He had received fentanyl and Zofran prior to arrival with minimal or no improvement. The patient was quite anxious and hyperventilating on arrival. He did receive Ativan 1 mg IV. His vital signs showed a temperature of 99.3. He was mildly tachycardic with heart rate of 106. Blood pressures in the 140s over 100s. Blood work reveals a white cou nt of 16,000 with a CRP of 4.4. Urinalysis is unremarkable. CT scan of the lumbar spine reveals postoperative changes with no obvious fluid accumulation visible on CT. He does however have a fracture of the spacer between the L2 and L3 vertebrae. Dr. Hartmann was consulted and he did evaluate the patient and review the patient's CAT scan findings. He stated that the hardware and spacers appeared to be in adequate position and there was no obvious evidence of fluid accumulation. The patient was still having significant pain after CT and received 2 doses of Dilaudid 1 mg IM. He was still having continued pain and Dr. Hartmann recommended administration of Toradol 30 mg IV. He also recommended that the patient be admitted for further pain management for the next several days. Dr. Duval was subsequently contacted and has agreed to admit the patient for further treatment. - Consult Counseled: POSITIVE: Patient, RE: Lab Results, RE: Radiology Results, RE: DX, RE: Need for F/U Patient Care Time - Estimated PCT Patient Care Time (In Minutes): 35 Vital Signs - Recent Vital Signs Vital Signs: Vital Signs (Last 8 hours) Temp Pulse Resp BP Pulse Ox 10/19/18 08:08 99.3 F 106 H 18 145/106 96 - VS Reviewed Vital Signs Reviewed: Yes Discharge Clinical Impression: Status post lumbar surgery, Postoperative pain Discharge Disposition: Admit to Observation Condition: Stable Patient Instructions Given at Discharge: Back Pain (ED)
[2018-10-19] MEDS ORDERED: KETOROLAC 30 MG/1 ML VIAL IVP ONE (09:45)
--- NOTE | 2018-10-19 12:07 | PDOC ---
HPI - History of Present Illness History of Present Illness: This very nice 48-year-old gentleman who is status post surgery was discharged home yesterday for lumbar fusion by Dr. Hartmann he was seen in the emergency room w ith some drainage noted on the dressing and had some serosanguineous drainage was no evidence of swelling or redness this morning he was having some back pain that radiated both to his legs was called by Dr. Hartmann and Dr. Mason to admit the patient for pain control I asked Dr. Hartmann to consult and make some recommendations Past Medical History Medical History: Back surgery, tobacco use Surgical History: Back surgery Tobacco Use: Current Every Day Smoker In the Past 12 Months, Have Used or Abuse Any of the Following Substance: None Medication / Allergies Home Medications: Home Medications Medication Instructions Recorded Confirmed cyclobenzaprine 10 mg tablet 10 mg PO Q8H PRN #60 tab 10/17/18 10/19/18 hydrocodone 7.5 mg-acetaminophen 1 tab PO Q4H PRN #40 tab 10/17/18 10/19/18 325 mg tablet sulfamethoxazole 800 1 tab PO BID 5 Days #10 tab 10/17/18 10/19/18 mg-trimethoprim 160 mg tablet Allergies/Adverse Reactions: Allergies Allergy/AdvReac Type Severity Reaction Status Date / Time oxycodone [From Percocet] AdvReac Dysphoria Verified 10/19/18 08:05 Review of Systems - Respiratory Respiratory: DENIES: Negative System Review, Cough, Sputum, Dyspnea At Rest, Dyspnea with Exertion, Pleuritic Pain, Hemoptysis, Wheezing, Other, See HPI - Cardiovascular Cardiovascular: DENIES: Negative System Review, Chest Pain, Edema, Syncope, Palpitations, Orthopnea, Paroxysmal Nocturnal Dyspnea, Other, See HPI - Gastrointestinal Gastrointestinal / Abdominal: DENIES: Negative System Review, Nausea, Vomiting, Diarrhea, Constipation, Abdominal Pain, Bloody Stool, Poor Appetite, Heartburn, Regurgitation, Bloating, Lactose Intolerance, Melena, Bright Red Blood per Rectum, Other, See HPI - Musculoskeletal Musculoskeletal: REPORTS: Back Pain Exam - Vitals Vital Signs: Vital Signs Temperature 99.3 F Temperature Source Temporal Artery Scan Pulse Rate [Pulse Oximeter] 106 Respiratory Rate 18 Blood Pressure [Right Arm] 145/106 Pulse Ox 96 Oxygen Delivery Method Room Air Height 5 ft 10 in Weight 180 lb - General General Appearance: No Acute Distress, Cooperative - ENT ENT Exam: POSITIVE: Normal Exam, Normal External Ear Exam, Normal Oropharynx, TM's Normal Bilaterally, Mucous Membranes Moist - Neck Neck Exam: Normal Inspection, Full ROM, No Tenderness, No Lymphadenopathy, No Thyromegaly, JVP is not Raised - Respiratory Respiratory Exam: POSITIVE: Clear to Auscultation - Bilaterally, Breathing Non Labored, Normal To Percussion, Normal to Percussion and Palpation - Cardiovascular Cardiovascular Exam: POSITIVE: RRR, No Murmur, No Clicks, No Gallops, No Rubs, PMI Non-Displaced - GI/Abdominal GI/Abdominal Exam: POSITIVE: Normal Bowel Sounds, Non Tender, Non Distended, Soft, No Masses, No Hepatomegaly, No Splenomegaly, No Organomegaly - Extremities Extremities Exam: POSITIVE: No Clubbing Present, No Edema Present, No Cyanosis Present Results - Labs CBC and BMP: 10/19/18 07:00 10/19/18 07:00 Assessment and Plan - Patient Problems (1) Postoperative pain Current Visit: Yes Status: Acute Comment: Admit for pain control with IV Toradol and IV Tylenol if necessary he will have his usual oxycodone that was prescribed by Dr. Hartmann Code(s): G89.18 - Other acute postprocedural pain (2) Status post discectomy for herniated nucleus pulposus Current Visit: No Status: Chronic Comment: For Dr. Hartmann for wound care he is on consult then she has seen the patient today Code(s): Z98.890 - Other specified postprocedural states; Z87.39 - Personal history of other diseases of the musculoskeletal system and connective tissue (3) Tobacco abuse Current Visit: No Status: Chronic Comment: .Nicotine patch Code(s): Z72.0 - Tobacco use
[2018-10-19] MEDS ORDERED: CYCLOBENZAPRINE 10 MG TABLET PO PRN (12:29)
[2018-10-19] MEDS ORDERED: HYDROcodone-APAP 7.5 MG-325 MG TABLET PO PRN (12:29)
[2018-10-19] MEDS ORDERED: ONDANSETRON 4 MG/2 ML VIAL IVP PRN (12:29)
[2018-10-19] MEDS ORDERED: CALCIUM CARBONATE 500 MG (TUMS) CHEWABLE TABLET PO PRN (12:29)
[2018-10-19] MEDS ORDERED: LIDOCAINE W/ SODIUM BICARB 0.5 ML SYR SUBD PRN (12:29)
[2018-10-19] MEDS ORDERED: DOCUSATE 100 MG CAPSULE PO PRN (12:29)
[2018-10-19] MEDS ORDERED: ACETAMINOPHEN 325 MG TABLET PO PRN (12:29)
[2018-10-19] MEDS: SULFAMETHOXAZOLE/TRIMETHOPRIM 800/160 MG TABLET PO SCH ×2 (12:57→21:10)
[2018-10-19] MEDS: HYDROcodone-APAP 7.5 MG-325 MG TABLET PO PRN ×3 (12:57→21:11)
[2018-10-19] MEDS: CYCLOBENZAPRINE 10 MG TABLET PO PRN ×2 (12:58→18:56)
[2018-10-19] MEDS: NICOTINE 21 MG /DAY PATCH TRANSDERM SCH (12:58)
--- NOTE | 2018-10-19 15:40 | CONSULT ---
Consult Note - Consult Consult Date: 10/19/18 Requesting Physician: Jose Luis Duval Primary Care Provider: Harpal Marques MD - History of Present Illness History of Present Illness: Eliza returned today with increasing back pain, incisional pain. He had some twitching in his legs and scant drainage from his incision. He was seen in the ER where a CT was obtained which shows no ominous findings. I saw and examined him in the ER. Review of Systems - Review of Systems All Systems: Reviewed & No Additional Complaints Except as Stated - Constitutional Constitutional: REPORTS: Negative System Review - Integumentary Integumentary: REPORTS: Negative System Review - Ear/Nose Exam Ear/Nose Exam: REPORTS: Negative System Review - Mouth/Throat Mouth/Throat Exam: REPORTS: Negative System Review - Respiratory Respiratory: REPORTS: Negative System Review - Cardiovascular Cardiovascular: REPORTS: Negative System Review - Gastrointestinal Gastrointestinal / Abdominal: REPORTS: Negative System Review - Genitourinary Genitourinary: REPORTS: Negative System Review - Musculoskeletal Musculoskeletal: REPORTS: Back Pain - Hematlogic / Lymphatic Hematologic / Lymphatic: REPORTS: Negative System Review - Neurological Neurologic: REPORTS: Tremors Past Medical History Tobacco Use: Current Every Day Smoker In the Past 12 Months, Have Used or Abuse Any of the Following Substance: None Medication / Allergies Home Medications: Home Medications Medication Instructions Recorded Confirmed cyclobenzaprine 10 mg tablet 10 mg PO Q8H PRN #60 tab 10/17/18 10/19/18 hydrocodone 7.5 mg-acetaminophen 1 tab PO Q4H PRN #40 tab 10/17/18 10/19/18 325 mg tablet sulfamethoxazole 800 1 tab PO BID 5 Days #10 tab 10/17/18 10/19/18 mg-trimethoprim 160 mg tablet Allergies/Adverse Reactions: Allergies Allergy/AdvReac Type Severity Reaction Status Date / Time oxycodone [From Percocet] AdvReac Dysphoria Verified 10/19/18 08:05 Exam - Vitals Vital Signs: Vital Signs Temperature 97.6 F Temperature Source Temporal Artery Scan Pulse Rate [Pulse Oximeter] 75 Pulse Rate [Right Index finger 86 ] Pulse Rate 61 Respiratory Rate 16 Blood Pressure [Right Arm] 149/84 Blood Pressure 133/86 Pulse Ox [Right Index finger] 98 Pulse Ox 93 Oxygen Flow Rate [Right Index 2 finger] Oxygen Flow Rate 2 Oxygen Delivery Method [Right Room Air Index finger] Oxygen Delivery Method Room Air Height 5 ft 10 in Weight 181 lb 12.8 oz - General General Appearance: No Acute Distress - Head Head Exam: Normal Inspection, Atraumatic - Eye Eye Exam: POSITIVE: Normal Appearance - ENT ENT Exam: POSITIVE: Normal Exam - Neck Neck Exam: Normal Inspection, Full ROM - Respiratory Respiratory Exam: POSITIVE: Clear to Auscultation - Bilaterally - Cardiovascular Cardiovascular Exam: POSITIVE: RRR - GI/Abdominal GI/Abdominal Exam: POSITIVE: Non Tender, Non Distended - Rectal Rectal Exam: POSITIVE: Deferred - External Exam: POSITIVE: Deferred - Extremities Extremities Exam: POSITIVE: Full ROM, No Edema Present - Back Back Exam: POSITIVE: Normal Inspection Additional Back Exam Details: Wound clean and dry - Neurological Neurological Exam: POSITIVE: Alert, Oriented x 3, Reflexes Normal, CN II-XII Intact, Moves All Extremities Equally Additional Neurological Exam Details: Full strength and sensation Results - Labs CBC and BMP: 10/19/18 07:00 10/19/18 07:00 Assessment and Plan - Patient Problems (1) Dressing change Current Visit: No Status: Acute Code(s): Z48.00 - Encounter for change or removal of nonsurgical wound dressing (2) Postoperative pain Current Visit: Yes Status: Acute Code(s): G89.18 - Other acute postprocedural pain - Assessment / Plan Additional Assessment/Plan Details: Admit to swing bed for pain control. Suspect he was discharged pre-maturely. Recommend 24 hours of scheduled toradol, narcotics sparingly and PT/OT evalutation and treatment. Thank you.
[2018-10-19] MEDS: KETOROLAC 15 MG/1 ML VIAL IVP PRN ×2 (16:53→23:18)
[2018-10-19] MEDS: DOCUSATE 100 MG CAPSULE PO SCH (21:10)
[2018-10-20] MEDS: CYCLOBENZAPRINE 10 MG TABLET PO PRN ×4 (00:59→20:52)
[2018-10-20] MEDS: HYDROcodone-APAP 7.5 MG-325 MG TABLET PO PRN ×5 (02:17→20:06)
[2018-10-20 04:49] LABS: BASOPHILS # (AUTO) 0.04 10*3/UL; BASOPHILS % (AUTO) 0.2 % (0-1); EOSINOPHILS # (AUTO) 0.22 10*3/UL; EOSINOPHILS % (AUTO) 1.4 % (0-8); Hematocrit [HCT] 40.6 % (42.0-52.0); Hemoglobin [HGB] 13.5 g/dL (14.0-18.0); LYMPHOCYTES # (AUTO) 1.49 10*3/uL; MEAN CORPUSCULAR HEMOGLOBIN 30.4 PG (27-31); MEAN CORPUSCULAR HGB CONC 33.3 g/dL (33-37); MEAN CORPUSCULAR VOLUME 91.4 FL (80-90); MEAN PLATELET VOLUME 9.6 FL (7.4-12.2); MONOCYTES # (AUTO) 2.02 10*3/UL (0.3-0.8); MONOCYTES % (AUTO) 12.5 % (5-15); NEUTROPHILS # (AUTO) 12.29 10*3/UL; NEUTROPHILS % (AUTO) 76.3 % (50-80); RED BLOOD COUNT 4.44 10^6/uL (4.70-6.10)
[2018-10-20 05:00] LABS: BLOOD UREA NITROGEN 15 mg/dL (7-22); BUN/CREATININE RATIO 16.66 (6-20); SERUM ALBUMIN 3.5 g/dL (3.5-4.8)
[2018-10-20 05:05] LABS: PLATELET MORPHOLOGY COMMENT NORMAL MORPHOLOGY (NORM); RBC MORPHOLOGY COMMENT NORMAL MORPHOLOGY (NORM); WBC MORPHOLOGY COMMENT NORMAL MORPHOLOGY (NORM)
[2018-10-20] MEDS: KETOROLAC 15 MG/1 ML VIAL IVP PRN ×3 (07:51→22:09)
[2018-10-20] MEDS: SULFAMETHOXAZOLE/TRIMETHOPRIM 800/160 MG TABLET PO SCH ×2 (08:11→20:05)
[2018-10-20] MEDS: DOCUSATE 100 MG CAPSULE PO SCH ×2 (08:12→20:05)
[2018-10-20] MEDS: MAGNESIUM 400 MG/5 ML - 30 ML (MILK OF MAGNESIA) PO PRN ×2 (10:25→14:51)
--- NOTE | 2018-10-20 11:12 | PDOC(PROG) ---
Interval History: Doing well pain is a little improved but not totally still like to stay Objective : Data - Labs CBC and BMP: 10/20/18 03:50 10/20/18 03:50 Objective : Exam - General General Appearance: Cooperative - Respiratory Respiratory Exam: Clear to Auscultation - Bilaterally, Breathing Non Labored, Normal To Percussion, Normal to Percussion and Palpation - Cardiovascular Cardiovascular Exam: RRR, No Murmur, No Clicks, No Gallops, No Rubs, PMI Non- Displaced - GI/Abdominal GI/Abdominal Exam: Normal Bowel Sounds, Non Tender, Non Distended, Soft, No Masses, No Hepatomegaly, No Splenomegaly, No Organomegaly - Extremities Extremities Exam: No Clubbing Present, No Edema Present, No Cyanosis Present Assessment and Plan - Patient Problems (1) Postoperative pain Current Visit: Yes Status: Acute Comment: Continue current meds Code(s): G89.18 - Other acute postprocedural pain (2) Status post discectomy for herniated nucleus pulposus Current Visit: No Status: Chronic Comment: Continue current meds also has milk of mag for BMs Code(s): Z98.890 - Other specified postprocedural states; Z87.39 - Personal history of other diseases of the musculoskeletal system and connective tissue (3) Tobacco abuse Current Visit: No Status: Chronic Code(s): Z72.0 - Tobacco use
[2018-10-20] MEDS: NICOTINE 21 MG /DAY PATCH TRANSDERM SCH (13:29)
--- NOTE | 2018-10-20 14:14 | NEURO.PROG ---
Subjective Post Op Day: 3 Pain Management: PO Pineda Catheter: No Flatus: Yes Diet: Regular Ambulating: Yes Additional Details: POD #3, S/p L2-3 PLIF, Dr. Hartmann. Readmitted to hospitalist for pain control Doing well, pain well controlled. States he had to take 2 hydrocodone 7.5 mg every 4-6 hours to get relief so wants to do that upon discharge. Wearing brace. Numbness in the legs is getting better, pain improving in the legs. Denies weakness. Bladder working well, has not had a BM in 3 days but on Colace and just took Milk of Mag. Denies chest pain, shortness of breath, calf pain, fevers, chills. Objective : Data - Labs CBC and BMP: 10/20/18 03:50 10/20/18 03:50 - Vital Signs Vital Signs and I&O: Vital Signs - Last Taken Temperature 97.6 F 10/20/18 13:00 Pulse Rate 97 10/20/18 13:00 Respiratory Rate 24 10/20/18 13:00 Blood Pressure 157/95 10/20/18 13:00 Pulse Ox 99 10/20/18 13:00 Intake and Output (24hr x 4 totals) 10/18/18 10/19/18 10/20/18 10/21/18 05:59 05:59 05:59 05:59 Intake Total 2805 / 2805 1395 / 1395 Output Total 478 / 478 300 / 300 Balance 2327 / 2327 1095 / 1095 Objective : Exam - General General Appearance: No Acute Distress, Cooperative - Head Head Exam: Normal Inspection, Normocephalic, Atraumatic - Eye Eye Exam: Normal Appearance, EOMI - Neck Neck Exam: Normal Inspection, Full ROM - Respiratory Respiratory Exam: Breathing Non Labored - GI/Abdominal GI/Abdominal Exam: Non Distended - Extremities Extremities Exam: Full ROM, Normal Capillary Refill, No Edema Present, Negative Cris's sign Additional Extremities Exam Details: Motor exam reveals good strength in bilateral lower extremities. - Back Back Exam: Normal Inspection Additional Back Exam Details: Dressing with scant bloody drainage, intact. No erythema. - Neurological Neurological Exam: Alert, Oriented x 3, Speech Intact / Clear, Moves All Extremities Equally - Psychiatric Psychiatric Exam: Normal Affect, Normal Mood - Integumentary Integumentary Exam: Normal Color, Warm, Dry, Intact Assessment and Plan - Patient Problems (1) Tobacco abuse Current Visit: No Status: Chronic Code(s): Z72.0 - Tobacco use (2) Status post discectomy for herniated nucleus pulposus Current Visit: No Status: Chronic Code(s): Z98.890 - Other specified postprocedural states; Z87.39 - Personal history of other diseases of the musculoskeletal system and connective tissue (3) Postoperative pain Current Visit: Yes Status: Acute Code(s): G89.18 - Other acute postprocedural pain - Assessment / Plan Additional Assessment/Plan Details: POD#3, s/p L2-[address] Hartmann on 10/17/17. Doing better and pain improving. PLAN: Continue brace, must wear while up. Dressing changes as needed. Continue current orders and medications per Dr. Duval. Will see in a.m. D/w Dr. Hartmann.
[2018-10-20] MEDS: HYDROmorphone 2 MG/1 ML IVP PRN (19:49)
[2018-10-20] MEDS ORDERED: BISACODYL 10 MG SUPPOSITORY RECTAL PRN (21:20)
[2018-10-21] MEDS: HYDROcodone-APAP 7.5 MG-325 MG TABLET PO PRN ×5 (01:26→21:02)
[2018-10-21] MEDS: CYCLOBENZAPRINE 10 MG TABLET PO PRN ×2 (03:54→15:45)
[2018-10-21] MEDS: KETOROLAC 15 MG/1 ML VIAL IVP PRN (04:31)
[2018-10-21] MEDS: HYDROmorphone 2 MG/1 ML IVP PRN ×3 (04:32→19:16)
[2018-10-21] MEDS: MAGNESIUM 400 MG/5 ML - 30 ML (MILK OF MAGNESIA) PO PRN ×2 (07:12→12:58)
[2018-10-21] MEDS: SULFAMETHOXAZOLE/TRIMETHOPRIM 800/160 MG TABLET PO SCH ×2 (09:47→21:02)
[2018-10-21] MEDS: DOCUSATE 100 MG CAPSULE PO SCH ×2 (09:47→21:02)
--- NOTE | 2018-10-21 10:46 | PDOC(PROG) ---
Interval History: Patient still do not have a BM I told them that the most likely because of his narcotic use things have slowed down he will try suppository today. He did request the dye lauded IV for breakthrough pain yesterday. Denies chest pain nausea vomiting Objective : Data - Labs CBC and BMP: 10/20/18 03:50 10/20/18 03:50 Objective : Exam - General General Appearance: Cooperative - Respiratory Respiratory Exam: Clear to Auscultation - Bilaterally, Breathing Non Labored, Normal To Percussion, Normal to Percussion and Palpation - Cardiovascular Cardiovascular Exam: RRR, No Murmur, No Clicks, No Gallops, No Rubs, PMI Non-Displaced - GI/Abdominal GI/Abdominal Exam: Normal Bowel Sounds, Non Tender, Non Distended, Soft, No Masses, No Hepatomegaly, No Splenomegaly, No Organomegaly - Extremities Extremities Exam: No Clubbing Present, No Edema Present, No Cyanosis Present - Neurological Neurological Exam: Alert, Oriented x 3, No Facial Droop, Speech Intact / Clear, Moves All Extremities Equally (Patient is standing and walking around) Assessment and Plan - Patient Problems (1) Postoperative pain Current Visit: Yes Status: Acute Comment: Patient on by mouth narcotics and IV narcotics for breakthrough pain she was seen by neurosurgery team Scotty Gibbons in regards to his wound dressings and PT OT orders defer to this team Code(s): G89.18 - Other acute postprocedural pain (2) Status post discectomy for herniated nucleus pulposus Current Visit: No Status: Chronic Comment: Continue pain control with current medications Code(s): Z98.890 - Other specified postprocedural states; Z87.39 - Personal history of other diseases of the musculoskeletal system and connective tissue (3) Tobacco abuse Current Visit: No Status: Chronic Comment: On nicotine patch Code(s): Z72.0 - Tobacco use
--- NOTE | 2018-10-21 12:28 | NEURO.PROG ---
Subjective Post Op Day: POD #4 Pain Management: PO Pineda Catheter: No Flatus: Yes Diet: Regular Ambulating: Yes Additional Details: Patient doing fairly well. Has not had BM yet so got suppository and had a very small one. Dr. Duval has ordered lactulose. Dressing keeps soaking through; nursing changed this morning and soaked again now. Patient denies fevers, chills. Still on Bactrim. Pain tolerable on oral [place] but did request a dose of dilauded last night. Eating well. Walking well. Numbness and tingling improved in the legs. No weakness. Objective : Data - Labs CBC and BMP: 10/20/18 03:50 10/20/18 03:50 - Vital Signs Vital Signs and I&O: Vital Signs - Last Taken Temperature 97.1 F 10/21/18 06:37 Pulse Rate 90 10/21/18 07:00 Respiratory Rate 16 10/21/18 07:00 Blood Pressure 128/82 10/21/18 06:37 Pulse Ox 94 10/21/18 06:37 Intake and Output (24hr x 4 totals) 10/19/18 10/20/18 10/21/18 10/22/18 05:59 05:59 05:59 05:59 Intake Total 2805 / 2805 1595 / 1595 Output Total 478 / 478 300 / 300 Balance 2327 / 2327 1295 / 1295 Objective : Exam - General General Appearance: No Acute Distress, Cooperative - Head Head Exam: Normal Inspection, Normocephalic, Atraumatic - Eye Eye Exam: Normal Appearance, EOMI - Neck Neck Exam: Full ROM - Extremities Extremities Exam: Normal Inspection, Full ROM, No Edema Present - Back Additional Back Exam Details: Incision is clean and intact. There is serosanguinous drainage from the inferi or incision with some blister formation around where the tape/adhesive has been. There is some surrounding erythema around the lower torso laterally but none near the incision without signs of infection at the incision site. PT dressed with ABD and fabric tape. Motor exam intact. Reflexes are normal bilateral lower extremities. - Neurological Neurological Exam: Alert, Oriented x 3, Reflexes Normal, Normal Gait, No Facial Droop, Moves All Extremities Equally - Psychiatric Psychiatric Exam: Normal Affect, Normal Mood - Integumentary Integumentary Exam: Normal Color, Warm, Dry Assessment and Plan - Patient Problems (1) Tobacco abuse Current Visit: No Status: Chronic Code(s): Z72.0 - Tobacco use (2) Status post discectomy for herniated nucleus pulposus Current Visit: No Status: Chronic Code(s): Z98.890 - Other specified postprocedural states; Z87.39 - Personal history of other diseases of the musculoskeletal system and connective tissue (3) Postoperative pain Current Visit: Yes Status: Acute Code(s): G89.18 - Other acute postprocedural pain - Assessment / Plan Additional Assessment/Plan Details: POD#4, s/p L2-[address] Hartmann, readmitted for pain control PLAN: Continue activity restrictions and brace when up. PT came for wound care. Dressing changes when drainage accumulates to keep area dry which was discussed with nursing; PT left supplies. D/w Dr. Hartmann; continue Bactrim DS BID x 5 more days. Patient has a prescription for 5 days at home for after discharge if needed. Limit narcotics as much as possible and continue milk of mag, power pudding, colace for BM. Continue orders per Dr. Duval.
[2018-10-21] MEDS: NICOTINE 21 MG /DAY PATCH TRANSDERM SCH (12:57)
[2018-10-21] MEDS: LACTULOSE 20 GM PACKET PO SCH ×2 (13:01→21:03)
[2018-10-22] MEDS: HYDROcodone-APAP 7.5 MG-325 MG TABLET PO PRN ×4 (01:01→13:14)
[2018-10-22 04:53] LABS: BASOPHILS # (AUTO) 0.04 10*3/UL; BASOPHILS % (AUTO) 0.3 % (0-1); EOSINOPHILS # (AUTO) 0.44 10*3/UL; EOSINOPHILS % (AUTO) 2.9 % (0-8); Hematocrit [HCT] 39.4 % (42.0-52.0); LYMPHOCYTES # (AUTO) 1.56 10*3/uL; MEAN CORPUSCULAR HEMOGLOBIN 30.3 PG (27-31); MEAN CORPUSCULAR VOLUME 91.8 FL (80-90); MEAN PLATELET VOLUME 9.1 FL (7.4-12.2); MONOCYTES # (AUTO) 1.82 10*3/UL (0.3-0.8); MONOCYTES % (AUTO) 12.2 % (5-15); NEUTROPHILS # (AUTO) 11.02 10*3/UL; NEUTROPHILS % (AUTO) 73.7 % (50-80); RED BLOOD COUNT 4.29 10^6/uL (4.70-6.10)
[2018-10-22 05:00] LABS: BLOOD UREA NITROGEN 16 mg/dL (7-22); BUN/CREATININE RATIO 14.54 (6-20); SERUM ALBUMIN 3.6 g/dL (3.5-4.8)
[2018-10-22 05:07] LABS: PLATELET MORPHOLOGY COMMENT NORMAL MORPHOLOGY (NORM); RBC MORPHOLOGY COMMENT NORMAL MORPHOLOGY (NORM); WBC MORPHOLOGY COMMENT NORMAL MORPHOLOGY (NORM)
[2018-10-22] MEDS: CYCLOBENZAPRINE 10 MG TABLET PO PRN (07:10)
[2018-10-22 07:23] VITALS: RESP 20
[2018-10-22] MEDS: SULFAMETHOXAZOLE/TRIMETHOPRIM 800/160 MG TABLET PO SCH (08:29)
[2018-10-22] MEDS: DOCUSATE 100 MG CAPSULE PO SCH (08:29)
[2018-10-22] MEDS: LACTULOSE 20 GM PACKET PO SCH (09:09)
[2018-10-22] MEDS ORDERED: cefTRIAXone Inj 2 GM in Sodium Chloride 0.9% 100 ML IV SCH (11:30)
--- NOTE | 2018-10-22 12:10 | PTI REPORT ---
Thank you for the referral of Tia Bar. He was seen on 10/21/18 for an inpatient evaluation for wound care. SUBJECTIVE: The patient is a 48-year-old male who underwent a lumbar fusion last Monday. The patient was doing relatively well after surgery and was discharged home but was readmitted secondary to redness along his lower back and is also having issues with his wound draining and has developed blisters which appear to be from the adhesive from the tape that's been over his wound. The patient reports he is doing well this morning. Per nursing staff, he is draining quite a bit through the gauze pads that they had on his back and they were using a foam tape, but this has irritated the patient's skin and they are looking for ideas for a more appropriate approach to the wound care. PAST MEDICAL HISTORY: Past medical history can be found in the patient's medical record. OBJECTIVE FINDINGS: The patient was alert and oriented to setting. The patient was seated edge of bed. He did have some redness along his lower back. Incision site looked good, he just had some serosanguineous drainage from the inferior portion of his wound and he does have a lot of large blisters around the wound bed; you can see where previous adhesives have been on his skin and that his skin is very irritated. The therapist cleansed the mary lou wound and then applied a large abdominal ABD pd to cover the area of all the blisters followed by Mefix tape, which is an adhesive fabric tape to help protect the patient's skin. The therapist did discuss with KAMRAN Dos Santos and nursing staff that we are to change the ABD pad every time it starts to get soiled to keep that clean and dry and to use the fabric adhesive around and see if the patient's skin responds better to this as it seems like with any other adhesive his skin is breaking out pretty bad. Everybody demonstrated understanding of our approach to the wound care and we will check back tomorrow to make sure that everything is going well. ASSESSMENT: The patient has good rehab potential. Problem List: Wound care Short-Term Goals: To be met by discharge from inpatient: Patient will be seen PRN to assist nursing staff with ideas for dressings in order to keep the wound clean and dry. Long-Term Goals: To be met following discharge from inpatient: Patient may be seen by outpatient physical therapy if continued wound care is needed. TREATMENT PLAN: Patient will be seen on a PRN basis if the nursing staff needs any help with adjusting the type of dressing. We will see how the patient responds to the current one that was put on and go from there. INITIAL TREATMENT: Treatment today consisted of the initial evaluation followed by wound care dressing change. BLANCA
[2018-10-22] MEDS ORDERED: Patch Removal PATCH TRANSDERM SCH (13:00)
[2018-10-22 13:03] VITALS: BP 127/92; TEMP 97.9; O2SAT 94
[2018-10-22] MEDS: NICOTINE 21 MG /DAY PATCH TRANSDERM SCH (13:27)
--- NOTE | 2018-10-22 13:33 | DCSUMMARY ---
Hospitalization Summary Admit Date: 10/19/2018 Discharge Date: 10/22/18 Primary Diagnosis:: flank cellulitis versus chemical cellulitis Hospital Course: This very pleasant 48-year-old male who just had back surgery with Dr. Hartmann. Please see his surgical notes regarding procedures done. The patient was admitted with increasing back pain, and what was serosanguineous drainage from the wound. The wound itself shows no erythema surrounding the wound. The fluid is serosanguineous and blood cultures have remained negative from the . The patient has an elevated white blood cell count but has been afebrile. He had significant blistering on his skin yesterday away from the incision, that has resolved today with dressing changes. The erythema seems to be responding minimally, however and it's difficult to distinguish between a chemical cellulitis versus an infectious cellulitis here. I was able to get the patient in with infectious diseases next week for evaluation of this. In the meantime I think we should treat this as if it is an infectious cellulitis with Rocephin 2 g IV every 24 hours. Patient states his back pain is better. His ambulatory in his room. He denies any chest pain or shortness breath. Assessment and Plan: 1. As per discharge assessments noted 2. Disposition: Patient will be discharged home. 3. Condition on discharge, stable and improved. 4. Diet: regular diet 5. Activities: Activities as per physical therapy and neurosurgery 6. Follow-Up: 1. Dr. Gutierrez in [address] Hartmann as scheduled 3. [place] infectious disease in 1 week for evaluation of this flank cellulitis. 7. Medications at the Time of Discharge: Home Medications Medication Instructions Recorded Confirmed cyclobenzaprine 10 mg tablet 10 mg PO Q8H PRN #60 tab 10/17/18 10/19/18 Docusate Sodium [Colace] 100 mg PO BID #60 cap 10/22/18 Hydrocodone/Acetaminophen [[place] 1 - 2 tab PO Q4H PRN #40 tab 10/22/18 7.5-325 Tablet] cefTRIAXone Inj [Rocephin Inj] 2 gm IV Q24H #10 vial 10/22/18 8. Time, care, counseling and coordination of care for this discharge is greater than 30 minutes. Exam - Vitals Vital Signs: Vital Signs Temperature 97.9 F Temperature Source Temporal Artery Scan Pulse Rate [Apical] 106 Pulse Rate [Pulse Oximeter] 89 Respiratory Rate 20 Blood Pressure [Left Arm] 127/92 Blood Pressure [Right Arm] 122/76 Pulse Ox 94 Oxygen Flow Rate 97 Oxygen Delivery Method Room Air Height 5 ft 10 in Weight 188 lb 12.8 oz - General General Appearance: No Acute Distress, Cooperative - Head Head Exam: Normal Inspection, Normocephalic, Atraumatic - Eye Eye Exam: POSITIVE: No Scleral Icterus - ENT ENT Exam: POSITIVE: Mucous Membranes Moist - Neck Neck Exam: JVP is not Raised - Respiratory Respiratory Exam: POSITIVE: Clear to Auscultation - Bilaterally, Breathing Non Labored - Cardiovascular Cardiovascular Exam: POSITIVE: RRR, No Murmur, No Clicks, No Gallops, No Rubs, No JVD - GI/Abdominal GI/Abdominal Exam: POSITIVE: Normal Bowel Sounds, Non Tender, Non Distended, Soft - Neurological Neurological Exam: POSITIVE: Alert, Oriented x 3, Normal Gait, No Facial Droop, Speech Intact / Clear, Moves All Extremities Equally - Psychiatric Psychiatric Exam: POSITIVE: Normal Affect, Normal Mood - Integumentary Additional Integumentary Exam Details: erythema on the flanks, tender to palpation, extends laterally bilaterally, but not anteriorly. no blisters today. incision is C/D/I, with minimal drainage. There is no surrounding incisional erythema. Data Peritnent Studies: 10/19/18 10/19/18 10/19/18 07:00 07:00 08:54 WBC 16.56 H Hgb Hct Plt Count Sodium Potassium Chloride Carbon Dioxide Anion Gap BUN Creatinine Estimated GFR BUN/Creatinine Ratio Glucose Calculated Osmolality Calcium Total Bilirubin AST ALT Alkaline Phosphatase C-Reactive Protein 4.4 H Total Protein Albumin Globulin Albumin/Globulin Ratio Ur Culture Indicated? Culture not set 10/22/18 10/22/18 04:33 04:33 WBC 14.96 H Hgb 13.0 L Hct 39.4 L Plt Count 313 Sodium 138 Potassium 4.5 Chloride 100 Carbon Dioxide 27 Anion Gap 11 BUN 16 Creatinine 1.1 Estimated GFR > 60 BUN/Creatinine Ratio 14.54 Glucose 85 Calculated Osmolality 285.0 Calcium 9.1 Total Bilirubin 0.4 AST 27 ALT 24 Alkaline Phosphatase 79 C-Reactive Protein 24.3 H Total Protein 6.5 Albumin 3.6 Globulin 3.0 Albumin/Globulin Ratio 1.20 L Ur Culture Indicated? Procedures: [address] [facility]. [facility] [place] [address] PH: DD: [phone] FAX: [phone] ~DIAGNOSTIC IMAGING REPORT~ Patient: DipikaTia : 1970 Sex: M Age: 48 Exam Name: CT Lumbar Spine WO Contrast Exam Date: 10/19/18 Report # : [id number] CPT Code: 94729 EMR/MR #: [id number] Ordering: DEISY KEYS Admiting: Primary: Harpal Marques MD Attending: Signed CT Lumbar Spine WO Contrast 10/19/2018 7:19 AM History: [facility] [place] [facility] ^increased low back pain, weakness/numbness in the Comparison: L-spine x-ray 10/17/2018. L-spine CT 10/04/2018. Technique: Noncontrast CT images of the lumbar spine were obtained in the axial, coronal, and sagittal planes. Findings: The patient is status post L2/3 transpedicular fusion with interbody spacer and laminectomy at the L2 level. The right portion of the spacer is fra ctured, though remains within the intervertebral disc space. The screws remain within the confines of the cortex of the pedicles and vertebral bodies. There is no evidence of metallic hardware fracture. There is grade 1 anterolisthesis of L5 on S1 with bilateral L5 pars defects, not significantly changed compared to prior imaging. There are 5 non-rib bearing lumbar type vertebral bodies. The vertebral body heights are maintained. L1-2: Intervertebral disc height is maintained. There is no significant osseous central canal stenosis or neuroforaminal narrowing. Posterior elements appear unremarkable. (Normal level.) L2-3: Intervertebral disc spacer restores some height loss. There is no significant osseous central canal stenosis or neuroforaminal narrowing L3-4: Mild intervertebral disc height loss. There is no significant osseous central canal stenosis or neuroforaminal narrowing. L4-5: Mild intervertebral disc height loss. There is no significant osseous central canal stenosis or neuroforaminal narrowing. L5-S1: Mild intervertebral disc height loss. There is no significant osseous central canal stenosis or neuroforaminal narrowing. There is hypoattenuating debris with small locules of gas in the surgical bed, an expected finding in the immediate postoperative timeframe. Further evaluation is limited in the absence of intravenous contrast. The paravertebral soft tissues are otherwise unremarkable. The lung bases are clear. The imaged solid organs and hollow viscera demonstrate normal CT morphology. Scattered atheromatous calcifications are noted in the vasculature. Impression: Status post transpedicular L2/3 fusion with interbody spacer and L2 laminectomy. The right portion of the spacer is fractured, though remains within the intervertebral disc space. Correlate with desired surgical outcome. Dictated By: 10/19/18 0826 MELISSA ANDRADE MD. Signed By: 10/19/18 0850 MELISSA ANDRADE MD.
== END 2018-10-22 13:51 | disposition home or self-care (01) | DRG 948 ==
LOC: MED/SURG 07:10 → ER 07:10 → MED/SURG 12:30 → UNDODISIN 10-22 13:51
PROVIDERS: ADMIT Family Medicine; ATTEND Family Medicine